=== PATIENT | female | born 1995 | race Caucasian/White ===

== ENCOUNTER 2017-08-14 09:28 | Inpatient (IN) | payer OTHER, MEDICAID ==
[~2017-08-14] VITALS: Ht 162.6 cm; Wt 88.5 kg
[2017-08-14] VITALS (55 sets, daily range): BP systolic 101–137; BP diastolic 58–114; PULSE 78–120; RESP 18–19; TEMP 97.6–99
[2017-08-14] MEDS ORDERED: PREN29TA PO (09:56)
[2017-08-14] MEDS ORDERED: LACTATED RINGER'S 1000 ML INJ 1,000 ML IV PRN (11:16)
[2017-08-14] MEDS ORDERED: ONDANSETRON HCL 4 MG/2 ML VIAL IV PUSH PRN (11:30)
[2017-08-14] MEDS ORDERED: LIDOCAINE HCL 1% 50 ML VIAL I-DERMAL PRN (11:30)
[2017-08-14] MEDS ORDERED: LIDOCAINE HCL 1% 50 ML VIAL INFIL PRN (11:30)
[2017-08-14] MEDS ORDERED: OXYTOCIN 30 UNITS-500ML PREMIX 500 ML IV ONE (11:30)
[2017-08-14] MEDS ORDERED: CITRIC ACID-SODIUM CITRATE LIQ 30 ML UDC PO SCH (11:30)
[2017-08-14] MEDS ORDERED: SODIUM CHLORID 0.9% 500 ML INJ 500 ML IV PRN (11:30)
[2017-08-14] MEDS ORDERED: MINERAL OIL 10 ML VIAL TOPICAL PRN (11:30)
--- NOTE | 2017-08-14 11:33 | PD ---
HPI Chief Complaint ctx Travel History International Travel<30 Days: No Contact w/Intl Traveler<30Days: No Known Affected Area: No History of Present Illness HPI 22-year-old , IUP at 40.3 care complicated by history of chlamydia, history of abnormal Pap smear Patient presents complaining of the onset of painful contractions at 3 AM this morning. She reports she is feeling contractions every 3 minutes and they have increased in intensity and frequency. There are no aggravating factors although they're becoming worse with time. There are no alleviating factors are attempted treatments. The patient reports good movement. Patient denies any leaking of fluid or vaginal bleeding. Weeks Gestation: 40 Para: 0 : 1 History Past Medical History Medical History: Denies Significant Hx Obstetric History Obstetric History History of chlamydia during this History of abnormal Pap smear during this Past Surgical History Surgical History: No Previous Surgery Family History Narrative Family History HTN Social History Alcohol Use: No Tobacco Use: No Substance Abuse: No Allergies-Medications (Allergen,Severity, Reaction): Coded Allergies: No Known Allergies (Verified Allergy, Unknown, 08/14/17) Home Meds Reported Medications Vit-Iron Carbonyl ( Plus Iron 29-1 mg) 29 Mg Iron-1 Mg Tab, 1 TAB PO DAILY for Nutritional Supplement, #30 TAB 0 Refills 08/14/17 Review of Systems Except as stated in HPI: all other systems reviewed are Neg Physical Exam Narrative GENERAL: Well-nourished, well-developed patient. SKIN: Warm and dry. HEAD: Normocephalic and atraumatic. EYES: No scleral icterus. No injection or drainage. ENT: No nasal drainage noted. Mucous membranes pink. Airway patent. NECK: Supple, trachea midline. No JVD. CARDIOVASCULAR: Regular rate and rhythm without murmurs, gallops, or rubs. RESPIRATORY: Breath sounds equal bilaterally. No accessory muscle use. BREASTS: Deferred ABDOMEN/GI: Abdomen soft, non-tender, bowel sounds present, no rebound, no guarding Gravid GENITOURINARY: External Genitalia: intact and normal in appearance. Normal BUS glands. Exam as per RN with 2-3/90/-1. FHT's: heart rate baseline in the 130s with good accelerations and moderate long-term variability. Initially there were no decelerations noted however a couple of possible mild variables were noted at 1. on the patient's heart rate tracing EXTREMITIES: No cyanosis or edema. BACK: Nontender without obvious deformity. No CVA tenderness. NEUROLOGICAL: Awake and alert. Motor and sensory grossly within normal limits. Five out of 5 muscle strength in all muscle groups. Normal speech. Musculoskeletal: Grossly normal ROM, gait, muscle strength Psychiatric: Grossly normal memory and affect Data Data Orders Orders Ob (2e) Additional Admit Info (08/14/17 11:15) Admit To Inpatient (08/14/17 ) Code Status (08/14/17 11:16) Vital Signs (Adult) .Per protocol (08/14/17 11:16) Activity Oob Ad Nargis (08/14/17 11:16) Heart (08/14/17 11:16) Amnioinfusion (08/14/17 11:16) Urinary Catheter Management .ONCE (08/14/17 11:16) Diet Npo (08/14/17 Lunch) Lactated Ringer's 1000 Ml Inj (Lr 1000 M (08/14/17 11:16) Lactated Ringer's 1000 Ml Inj (Lr 1000 M (08/14/17 11:16) Sodium Chlorid 0.9% 500 Ml Inj (Ns 500 M (08/14/17 11:30) Sodium Chlor 0.9% 1000 Ml Inj (Ns 1000 M (08/14/17 11:36) Lidocaine 1% Inj (50 Ml) (Xylocaine 1% I (08/14/17 11:30) Citric Acid-Sodium Citrate Liq (Bicitra (08/14/17 11:30) Ondansetron Inj (Zofran Inj) (08/14/17 11:30) Fentanyl Inj (Fentanyl Inj) (08/14/17 11:30) Fentanyl Inj (Fentanyl Inj) (08/14/17 11:30) Complete Blood Count With Diff (08/14/17 11:16) Hold Clot (08/14/17 11:16) Abo/Rh Blood Type (08/14/17 11:16) Urinalysis - C+S If Indicated (08/14/17 11:16) Resp Oxygen Non Rebreathe Mask (08/14/17 ) ^ Epidural / Intrathecal Infus (08/14/17 11:16) Oxytocin 30 Units-500ml Premix (Pitocin (08/14/17 11:30) Lidocaine 1% Inj (50 Ml) (Xylocaine 1% I (08/14/17 11:30) Light Mineral Oil (Muri-Lube Oil) (08/14/17 11:30) Inpatient Certification (08/14/17 ) MDM Plan Assessment/plan: 1. IUP at 40.3 2. Early labor: Will admit patient to Dr. Egan, likely in early labor. 3. GBS negative 4. Overall reassuring testing, but admitted for a couple possible mild variables. We'll monitor heart rate tracing closely. Currently reassuring heart rate tracing. Jigna May MD Aug 14, 2017 11:33
[2017-08-14] MEDS ORDERED: SODIUM CHLOR 0.9% 1000 ML INJ 1,000 ML IV PRN (11:36)
[2017-08-14] MEDS: LACTATED RINGER'S 1000 ML INJ 1,000 ML IV SCH ×2 (12:32→21:08)
[2017-08-14 13:13] LABS: AUTOMATED NEUTROPHIL # 15.5 TH/MM3 (1.8-7.7); BASOPHIL % 0.1 % (0.0-2.0); HEMATOCRIT 36.7 % (35.0-46.0); HEMO FLAGS DIFF FINAL; LYMPH % 3.8 % (9.0-44.0); LYMPHOCYTE # 0.6 TH/MM3 (1.0-4.8); MEAN CELL VOLUME 83.9 FL (80.0-100.0); MEAN CORPUSCULAR HGB CONC 33.4 % (32.0-36.0); MONO % 4.1 % (0.0-8.0); PLATELET COUNT 177 TH/MM3 (150-450); RED BLOOD COUNT 4.37 MIL/MM3 (4.00-5.30); RED CELL DISTRIBUTION WIDTH 15.6 % (11.6-17.2); WHITE BLOOD COUNT 16.9 TH/MM3 (4.0-11.0)
[2017-08-14 14:44] LABS: BLOOD, URINE MOD (NEG); COMMENT (UR) CULT NOT INDICATED; CULTURE IF INDICATED CULT NOT INDICATED; GLUCOSE,URINE NEG (NEG); KETONE, URINE NEG (NEG); MUCUS URINE FEW /lpf (OCC); NITRITE,URINE NEG (NEG); SQUAMOUS EPITHELIAL CELL URINE 2 /hpf (0-5); URINE COLOR YELLOW (YELLW/STRAW)
[2017-08-14] MEDS ORDERED: fentaNYL 2MCG-BUPIV 0.125% INJ 100 ML ONE ×2 (15:13→15:16)
[2017-08-14] MEDS ORDERED: ePHEDrine/NS 25 MG/5 ML SYR ONE ×2 (15:13→15:16)
[2017-08-14] MEDS ORDERED: ePHEDrine/NS 25 MG/5 ML SYR IV PUSH PRN (16:45)
[2017-08-14] MEDS ORDERED: DO NOT ADMINISTER ANTICOAGULANTS PRN (16:45)
[2017-08-14] MEDS ORDERED: NO SYSTEM NARCOTICS PRN (16:45)
[2017-08-14] MEDS ORDERED: fentaNYL 2MCG-BUPIV 0.125% 100 ML EPIDURAL SCH (16:45)
--- NOTE | 2017-08-14 17:53 | PD.LABORPN ---
Subjective Subjective Comfortable on epidural Objective Vital Signs Vital Signs Date Time Temp Pulse Resp B/P (MAP) Pulse Ox O2 Delivery O2 Flow Rate FiO2 08/14/17 17:00 84 18 112/68 (83) 08/14/17 16:47 84 116/74 (88) 08/14/17 16:15 18 08/14/17 16:10 93 08/14/17 16:05 93 08/14/17 16:00 118/66 (83) 08/14/17 16:00 86 08/14/17 15:55 95 08/14/17 15:54 18 08/14/17 15:51 93 128/114 (119) 08/14/17 15:50 100 08/14/17 15:45 103 127/70 (89) 08/14/17 15:41 96 115/68 (84) 08/14/17 15:40 102 08/14/17 15:36 93 18 135/95 (108) 08/14/17 15:35 97 08/14/17 15:30 93 120/75 (90) 08/14/17 15:26 81 124/70 (88) 08/14/17 15:25 96 08/14/17 15:23 18 08/14/17 15:21 87 135/104 (114) 08/14/17 15:20 91 08/14/17 15:19 103 137/77 (97) 08/14/17 15:00 18 08/14/17 13:15 18 08/14/17 13:15 97.6 08/14/17 13:14 79 128/78 (95) 08/14/17 12:15 18 Objective 6cm/80%/-1 deviated to the left much bloody show AROM clear strip category one pelvis clinically adequate EFW 7 1/2 pounds Weeks Gestation: 40 Gest Age Assessed Date: Aug 14, 2017 Gest Age Assessed Time: 17:52 Pt started active labor?: Yes Active labor start date: Aug 14, 2017 Active labor start time: 17:52 Medical induction of labor?: No Artificial rupture of membrane: Yes Artificial ROM date: Aug 14, 2017 Artifical ROM time: 17:52 Assessment/Plan Assessment and Plan doing well - spontaneous labor with active phase now anticipate Elizabeth Hernandez MD Aug 14, 2017 17:53
[2017-08-14] MEDS ORDERED: BUPIVACAINE HCL PF 0.25% 10 ML VIAL ONE ×2 (21:44→23:31)
[2017-08-14] MEDS ORDERED: LIDOCAINE HCL 1.5% PF SOLN 20 ML AMP ONE (22:02)
[2017-08-14] MEDS ORDERED: LIDOCAINE 2%/EPINEPHrine PF 1:200,000 20ML SDV ONE (23:31)
[2017-08-15] VITALS (21 sets, daily range): BP systolic 95–127; BP diastolic 56–80; PULSE 74–134; RESP 16–18; TEMP 97.6–99
[2017-08-15] MEDS ORDERED: OXYTOCIN 30 UNITS-500ML PREMIX 500 ML ONE (00:42)
--- NOTE | 2017-08-15 01:48 | PD.OB.DELI ---
Weeks gestation: 40 Gest age assessed date: Aug 14, 2017 Gest age assessed time: 17:52 Pt started active labor?: Yes Active labor start date: Aug 14, 2017 Active labor start time: 17:52 Medical induction of labor?: No Artificial rupture of membrane: Yes Artificial ROM date: Aug 14, 2017 Artifical ROM time: 17:52 Anesthesia: Epidural Episiotomy: None Vaginal Delivery: Normal Presentation: Occiput anterior Nuchal Cord: None Delayed cord clamping (45 sec): Yes Infant: Female Delivery date: Aug 15, 2017 Delivery time: 01:48 One Minute : 9 Five Minute : 9 Weight: 8 Placenta: Spontaneous delivery Laceration: No lacerations Estimated blood loss: 350 Elizabeth Stevens MD Aug 15, 2017 01:48
[2017-08-15] MEDS ORDERED: ZOLPIDEM TARTRATE 5 MG TAB PO PRN (02:00)
[2017-08-15] MEDS ORDERED: WITCH HAZEL 50%/GLYCERIN 12.5% 40 PAD JAR TOPICAL PRN (02:00)
[2017-08-15] MEDS ORDERED: SODIUM CHLORIDE 0.9% FLUSH 10 ML FLUSH IV FLUSH PRN (02:00)
[2017-08-15] MEDS ORDERED: ACETAMINOPHEN 325 MG TAB PO PRN (02:00)
[2017-08-15] MEDS ORDERED: OXYTOCIN 30 UNITS-500ML PREMIX 500 ML IV SCH (02:00)
[2017-08-15] MEDS ORDERED: ONDANSETRON ODT 4 MG TAB PO PRN (02:00)
[2017-08-15] MEDS ORDERED: ALUMINUM/MAGNESIUM/SIMETH 30 ML CUP PO PRN (02:00)
[2017-08-15] MEDS ORDERED: DOCUSATE SODIUM 50 MG/SENNA 8.6 MG TAB PO PRN (02:00)
[2017-08-15] MEDS ORDERED: BENZOCAINE 20% TOPICAL SPRAY 60 ML CAN TOPICAL PRN (02:00)
[2017-08-15] MEDS: IBUPROFEN 600 MG TAB PO PRN ×2 (03:31→11:31)
[2017-08-15] MEDS: LACTATED RINGER'S 1000 ML INJ 1,000 ML IV SCH (03:57)
[2017-08-15] MEDS ORDERED: SODIUM CHLORIDE 0.9% FLUSH 10 ML FLUSH IV FLUSH SCH (09:00)
[2017-08-15] MEDS ORDERED: NIFEdipine 10 MG CAP ONE (12:21)
[2017-08-15] MEDS ORDERED: DIPHTH/TETANUS/ACEL PERTUSSIS (BOOSTER) 0.5 ML VIAL/PFS IM ONE (16:00)
[2017-08-15] MEDS ORDERED: MEASLES, MUMPS, RUBELLA VACCINE 0.5 ML VIAL SQ ONE (16:00)
[2017-08-16] VITALS: BP 112/72; PULSE 70; RESP 18; TEMP 97.9
[2017-08-16 04:00] VITALS: BP 127/71; PULSE 86; RESP 18; TEMP 98.6
[2017-08-16 08:00] VITALS: BP 102/65; PULSE 79; RESP 18; TEMP 98.1
[2017-08-16 14:00] VITALS: BP 94/61; PULSE 78
--- NOTE | 2017-08-16 14:02 | HHI.OB ---
Subjective Post Day: 1 Remarks Dooing well, bleeding is normal Baby is doing great. Ready to go home Objective Vitals/I&O Vital Signs Date Time Temp Pulse Resp B/P (MAP) Pulse Ox O2 Delivery O2 Flow Rate FiO2 08/16/17 08:00 98.1 79 18 08/16/17 08:00 102/65 (77) 08/16/17 04:00 127/71 (89) 08/16/17 04:00 98.6 86 18 08/16/17 00:00 97.9 70 18 112/72 (85) 08/15/17 20:00 97.6 74 18 115/70 (85) Objective Remarks GENERAL: Well-nourished, well-developed patient. CARDIOVASCULAR: Regular rate and rhythm without murmurs, gallops, or rubs. RESPIRATORY: Breath sounds equal bilaterally. No accessory muscle use. ABDOMEN/GI: Abdomen soft, non-tender. Fundus: Firm, non-tender at umbilicus. GENITOURINARY: Light to moderate bleeding. EXTREMITIES: No cyanosis or edema, non-tender, without signs of DVT. Medications and IVs Current Medications Medications (Trade) Dose Ordered Sig/Mark Route Start Time Stop Time Status Last Admin Lactated Ringer's 1,000 ml @ 125 mls/hr Q8H IV 08/14/17 11:16 08/15/17 03:57 Lactated Ringer's 1,000 ml @ 3,000 mls/hr Q20M PRN IV 08/14/17 11:16 Sodium Chloride 1,000 ml @ 100 mls/hr Q10H PRN IV 08/14/17 11:36 (Xylocaine 1% Inj (50 ml)) 0.1 ml UNSCH X1 PRN I-DERMAL 08/14/17 11:30 08/17/17 11:29 (Bicitra Liq) 30 ml EQUINE [employer] TECHNICIAN PO 08/14/17 11:30 08/18/17 11:29 (Zofran Inj) 4 mg Q6H PRN IV PUSH 08/14/17 11:30 08/14/17 12:32 (fentaNYL INJ) 50 mcg Q1H PRN IV PUSH 08/14/17 11:30 (fentaNYL INJ) 100 mcg Q1H PRN IV PUSH 08/14/17 11:30 08/14/17 14:00 (Muri-Lube Oil) 10 ml UNSCH PRN TOPICAL 08/14/17 11:30 Fentanyl/ Bupivacaine HCl 100 ml @ 0 mls/hr TITRATE EPIDURAL 08/14/17 16:45 (NS Flush) 2 ml BID IV FLUSH 08/15/17 09:00 (NS Flush) 2 ml UNSCH PRN IV FLUSH 08/15/17 02:00 (Tylenol) 650 mg Q4H PRN PO 08/15/17 02:00 08/15/17 11:31 (Motrin) 600 mg Q6H PRN PO 08/15/17 02:00 08/15/17 11:31 (Americaine 20% Top Spr) 1 spray Q4H PRN TOPICAL 08/15/17 02:00 08/15/17 11:31 (Tucks Pads) 1 applic QID PRN TOPICAL 08/15/17 02:00 08/15/17 11:31 (Claudia-Colace) 2 tab Q12H PRN PO 08/15/17 02:00 08/15/17 11:31 (Ambien) 5 mg HS PRN PO 08/15/17 02:00 (Mag-Al Plus Susp Liq) 15 ml Q8H PRN PO 08/15/17 02:00 (Zofran Odt) 4 mg Q6H PRN PO 08/15/17 02:00 Assessment/Plan Assessment and Plan PPD#1 Home Routine care Motrin otc for pain. Bear Zeng MD Aug 16, 2017 14:02
== END 2017-08-16 16:00 | disposition home or self-care (01) | DRG 775 ==
LOC: HOBED 09:28 → H2EA 11:22 → H1EA 08-15 04:08
PROVIDERS: ADMIT Obstetrics & Gynecology; ATTEND Obstetrics & Gynecology
PROC: 10907ZC Drainage of Amniotic Fluid, Therapeutic from Products of Conception, Via Natural or Artificial Opening (ICD-10-PCS; 2017-08-14)
PROC: 00HU33Z Insertion of Infusion Device into Spinal Canal, Percutaneous Approach (ICD-10-PCS; 2017-08-14)
PROC: 3E0R3BZ Introduction of Anesthetic Agent into Spinal Canal, Percutaneous Approach (ICD-10-PCS; 2017-08-14)
PROC: 10E0XZZ Delivery of Products of Conception, External Approach (ICD-10-PCS; principal; 2017-08-15)
DX: O80 Encounter for full-term uncomplicated delivery (principal); Z86.19 Personal history of other infectious and parasitic diseases; Z3A.40 40 weeks gestation of pregnancy; Z37.0 Single live birth
CPT/HCPCS: 59025; 81001; 85025; 86900; 86901; J2405; J2590; J3010; J7120